=== PATIENT | female | born 1995 | race Caucasian/White ===

== ENCOUNTER 2022-05-16 04:34 | Emergency (ER) | payer OTHER ==
[~2022-05-16] VITALS: Ht 160 cm; Wt 94.3 kg
[2022-05-16 04:39] VITALS: BP 119/77
--- NOTE | 2022-05-16 04:49 | NUR ---
Patient taken to bed 9.
--- NOTE | 2022-05-16 05:00 | NUR ---
BLOOD DRAWN AND TAKEN TO LAB
--- NOTE | 2022-05-16 05:06 | NUR ---
PT TO CT VIA W/C
--- NOTE | 2022-05-16 05:14 | NUR ---
PT. TRANSPORTED BACK FROM CT VIA WHEELCHAIR
[2022-05-16 05:29] LABS: BASOPHILS % (AUTO) 0.4 % (0.0-2.0); EOSINOPHILS # (AUTO) 0.2 K/uL (0-0.4); HEMATOCRIT 39.8 % (36-48); HEMOGLOBIN 13.2 g/dL (12.0-16.0); LYMPHOCYTES # (AUTO) 3.3 K/uL (2.5-16.5); LYMPHOCYTES % (AUTO) 36.4 % (20.5-51.1); MEAN CORPUSCULAR HEMOGLOBIN 29 pg (27-31); MEAN CORPUSCULAR HGB CONC 33 g/dL (33-37); MEAN CORPUSCULAR VOLUME 87.7 fL (80-94); MONOCYTES # (AUTO) 0.5 K/uL (0.8-1.0); MONOCYTES % (AUTO) 5.1 % (1.7-9.3); NEUTROPHILS # (AUTO) 5.1 K/uL (1.8-7.7); NEUTROPHILS % (AUTO) 56.1 % (42.2-75.2); PLATELET COUNT (AUTO) 359 K/uL (140-450); RED BLOOD CELL COUNT(AUTO) 4.54 MIL/uL (4.20-5.40); WHITE BLOOD COUNT (AUTO) 9.1 K/uL (4.8-10.8)
--- NOTE | 2022-05-16 05:34 | NUR ---
COVID SWAB COLLECTED AND SENT TO LAB
--- NOTE | 2022-05-16 05:45 | NUR ---
HAND OFF CARE GIVEN TO MAGDALENE MEDINA AT THIS TIME
[2022-05-16 05:53] LABS: ANION GAP 12.5 (8-16); CARBON DIOXIDE 26.5 mmol/L (21-32)
[2022-05-16 05:54] LABS: ALBUMIN 3.4 g/dL (3.4-5.0); CREATININE 0.6 mg/dL (0.6-1.3); TOTAL BILIRUBIN 0.3 mg/dL (0.0-1.0)
[2022-05-16 06:40] LABS: APPEARANCE,URINE CLEAR (CLEAR); COLOR,URINE YELLOW (YELLOW)
[2022-05-16 06:41] LABS: BILIRUBIN,URINE NEGATIVE (NEGATIVE); BLOOD, URINE TRACE (NEGATIVE); LEUKOCYTE ESTERASE ,URINE NEGATIVE (NEGATIVE); NITRITE, URINE NEGATIVE (NEGATIVE); UGLUCOSE NEGATIVE (NEGATIVE)
[2022-05-16 06:42] LABS: RBC,URINE NONE SEEN /HPF (0-5); WBC,URINE 0-5 /HPF (0-5)
[2022-05-16] MEDS ORDERED: METR-435 PO (07:02)
[2022-05-16] MEDS ORDERED: CIPR500T4 PO (07:02)
[2022-05-16] MEDS ORDERED: IBUP-2213 PO (07:03)
[2022-05-16] MEDS ORDERED: IBUPROFEN 600 MG TAB PO ONE (07:05)
== END 2022-05-16 07:29 | disposition home or self-care (01) ==
LOC: MED 04:34
DX: K57.92 Diverticulitis of intestine, part unspecified, without perforation or abscess without bleeding (principal); Z20.822 Contact with and (suspected) exposure to COVID-19
CPT/HCPCS: 36415; 80053; 81001; 81025; 83690; 85025; 99284

== ENCOUNTER 2023-08-12 12:52 | Emergency (ER) | payer OTHER ==
[~2023-08-12] VITALS: Ht 160 cm; Wt 90.7 kg
[~2023-08-12 12:52] MED LIST: CIPR500T4 PO; IBUP-2213 PO; METR-435 PO
[2023-08-12 13:06] VITALS: BP 124/97; PULSE 100; RESP 18; TEMP 98.5; O2SAT 98
[2023-08-12] MEDS: ACETAMINOPHEN EXTRA STRENGTH 500 MG TAB PO ONE (14:05)
[2023-08-12 15:56] LABS: FLU A ANTIGEN negative (NEGATIVE); FLU B ANTIGEN NEGATIVE (NEGATIVE)
[2023-08-12] MEDS ORDERED: AZIT250T4 PO (15:57)
== END 2023-08-12 16:10 | disposition home or self-care (01) ==
LOC: MED 12:52
DX: J02.0 Streptococcal pharyngitis (principal); Z20.822 Contact with and (suspected) exposure to COVID-19; Z79.899 Other long term (current) drug therapy
CPT/HCPCS: 87081; 99283

== ENCOUNTER 2023-08-21 02:14 | Emergency (ER) | payer OTHER ==
[~2023-08-21] VITALS: Ht 160 cm; Wt 90.7 kg
[~2023-08-21 02:14] MED LIST changes: +AZIT250T4 PO
[2023-08-21 02:20] VITALS: BP 135/83; PULSE 120; RESP 22; TEMP 103.1; O2SAT 97
[2023-08-21] MEDS: IBUPROFEN 600 MG TAB PO ONE (02:50)
[2023-08-21 02:51] VITALS: O2SAT 96
[2023-08-21] MEDS ORDERED: ACETAMIN/CODEINE 120/12MG-5ML 5 ML UDC PO ONE (03:15)
[2023-08-21 03:33] LABS: FLU A ANTIGEN negative (NEGATIVE); FLU B ANTIGEN NEGATIVE (NEGATIVE)
[2023-08-21] MEDS: NACL 0.9% 2,000 ML IV ONE (04:31)
[2023-08-21 04:54] LABS: APPEARANCE,URINE CLEAR (CLEAR); BILIRUBIN,URINE NEGATIVE (NEGATIVE); BLOOD, URINE 2+ (NEGATIVE); COLOR,URINE YELLOW (YELLOW); LEUKOCYTE ESTERASE ,URINE NEGATIVE (NEGATIVE); NITRITE, URINE NEGATIVE (NEGATIVE); PROTEIN,URINE NEGATIVE (NEGATIVE); UGLUCOSE NEGATIVE (NEGATIVE); UROBILINOGEN,URINE 0.2 EU/dL (0.2 - 1)
[2023-08-21 05:06] LABS: BASOPHILS % (AUTO) 0.2 % (0.0-2.0); EOSINOPHILS % (AUTO) 0.1 % (0.0-4.0); HEMOGLOBIN 11.7 g/dL (12.0-16.0); LYMPHOCYTES # (AUTO) 0.7 K/uL (2.5-16.5); LYMPHOCYTES % (AUTO) 9.5 % (20.5-51.1); MEAN CORPUSCULAR HEMOGLOBIN 27 pg (27-31); MEAN CORPUSCULAR HGB CONC 33 g/dL (33-37); MEAN CORPUSCULAR VOLUME 80.9 fL (80-94); NEUTROPHILS # (AUTO) 5.9 K/uL (1.8-7.7); NEUTROPHILS % (AUTO) 77.2 % (42.2-75.2); PLATELET COUNT (AUTO) 282 K/uL (140-450); RED BLOOD CELL COUNT(AUTO) 4.33 MIL/uL (4.20-5.40); RED CELL DISTRIBUTION WIDTH 14.8 % (11.6-13.7); WHITE BLOOD COUNT (AUTO) 7.6 K/uL (4.8-10.8)
[2023-08-21 05:10] LABS: BACTERIA,URINE 10-30 (MOD) /HPF (None Seen); WBC,URINE 0-5 /HPF (0-5)
[2023-08-21 05:11] LABS: MUCUS,URINE 1+ /LPF (None Seen); SQUAMOUS EPITHELIAL CELL,UR 0-3 (FEW) /LPF (0-3 (FEW))
[2023-08-21 05:18] LABS: ANION GAP 16.3 (8-16); CALCIUM 8.7 mg/dL (8.5-10.1); CARBON DIOXIDE 24.4 mmol/L (21-32); CREATININE 0.8 mg/dL (0.6-1.3); POTASSIUM 3.7 mmol/L (3.5-5.1)
[2023-08-21] MEDS: KETOROLAC 30 MG/ML VIAL IVP ONE (05:53)
[2023-08-21] MEDS ORDERED: LEVO-481 PO (07:02)
[2023-08-21] MEDS ORDERED: NAPR-54 PO (07:02)
[2023-08-21] MEDS: NACL 0.9% 1,000 ML IV ONE (08:30)
[2023-08-21 09:25] VITALS: BP 112/73; PULSE 99; RESP 19; TEMP 98.6; O2SAT 98
== END 2023-08-21 09:25 | disposition home or self-care (01) ==
LOC: MED 02:14
DX: J06.9 Acute upper respiratory infection, unspecified (principal); R82.71 Bacteriuria; Z20.822 Contact with and (suspected) exposure to COVID-19; Z98.890 Other specified postprocedural states; Z79.899 Other long term (current) drug therapy
CPT/HCPCS: 36415; 71045; 80048; 81001; 85025; 87086; 87426; 87804; 96361; 96374; 99285; J1885; J7030